=== PATIENT | male | born 1965 | race Caucasian/White ===

== ENCOUNTER → 2018-05-03 09:06 | Outpatient (CLI) | payer MEDICAID, SELFPAY ==
--- NOTE | 2018-05-03 09:10 | US_ITS ---
STUDY: ABDOMINAL ULTRASOUND - RIGHT UPPER QUADRANT REASON FOR VISIT: Male, 53 years old. Abnormal labs TECHNIQUE: Ultrasound evaluation of the right upper quadrant was performed with real-time and static juarez-scale imaging. TECHNICAL QUALITY: Adequate. Examination limited by bowel gas. COMPARISON: Gallbladder ultrasound 11/01/2013. FINDINGS: Liver: The liver measures 16 cm. There is increased echogenicity consistent with fatty infiltration. There is limited parenchymal detail. The direction of portal flow is hepatopetal. Gallbladder: The patient is status post cholecystectomy. Common Bile Duct (C.B.D.): The common bile duct measures 0.4 mm. Pancreas: There is nonvisualization of the pancreas. There is normal echogenicity of the pancreas. There is no demonstrated pancreatic mass or cyst. Right Kidney: Normal size of the right kidney. The right kidney measures 10.7 x 5 x 5 cm. Normal renal cortex. The right cortex measures 1.7 cm. There is no demonstrated renal mass or cyst. There is no right hydronephrosis. US/Abdomen Limited IMPRESSION: Hepatic steatosis, cholecystectomy, obscured pancreas. No right hydronephrosis. Electronically Signed: Radha Nice MD at 6:58 EST , Service support ,
== END ==
PROVIDERS: Family Provider Family Medicine; PCP Family Medicine; Referring Provider Family Medicine; Visit Provider Family Medicine
DX: R94.5 Abnormal results of liver function studies (principal)
CPT/HCPCS: 76705

== ENCOUNTER → 2019-02-18 08:55 | Outpatient (CLI) | payer MEDICAID, SELFPAY ==
[2019-02-18 09:54] LABS: Hemoglobin A1c 6.2 % (4.2-6.3)
[2019-02-18 10:14] LABS: ALB/GLOB Ratio 1.1 RATIO (0.9-2.4); AST(SGOT) 62 U/L (15-37); Alanine Aminotransfer ALT/SGPT 90 U/L (16-61); Albumin, Serum 4.1 g/dL (3.2-5.0); Alkaline Phosphatase 97 U/L (45-117); Anion Gap 5 (5-15); BUN 16 mg/dL (7-18); BUN/Creat Ratio 15.8 RATIO (10-20); Calcium,Total 9.3 mg/dL (8.5-10.1); Chloride 100 mmol/L (98-107); Cholesterol 223 mg/dL (200); Creatinine, Serum 1.01 mg/dL (0.70-1.30); EST Glomerular Filtration Rate 82 mL/min (>60); Est Glom Filt Rate - Afr Amer 99 mL/min (>60); Globulin 3.7 g/dL (2.2-4.2); Glucose 124 mg/dL (74-106); High Density Lipoprotein 46 mg/dL; Potassium 4.8 mmol/L (3.5-5.1); Protein, Total 7.8 g/dL (6.4-8.2); Sodium Level 135 mmol/L (136-145); Triglycerides 252 mg/dL; Very Low Density Lipoprotein 50 mg/dL (5-40)
== END ==
PROVIDERS: Family Provider Family Medicine; PCP Family Medicine; Referring Provider Family Medicine; Visit Provider Family Medicine
DX: E11.9 Type 2 diabetes mellitus without complications (principal); I10 Essential (primary) hypertension; R94.5 Abnormal results of liver function studies; R53.82 Chronic fatigue, unspecified; E78.49 Other hyperlipidemia
CPT/HCPCS: 36415; 80053; 80061; 83036

== ENCOUNTER 2019-10-04 09:57 | Emergency (ER) | payer OTHER, SELFPAY ==
[2019-10-04 09:58] VITALS: BP 145/91; PULSE 110; RESP 18; TEMP 36.3; O2SAT 96; BMI 31.4
[2019-10-04] MEDS: Diphth,Pertuss(Acell),Tet Vac 0.5 ML Vial IM (11:01)
--- NOTE | 2019-10-04 11:16 | ED.VIS.GEN ---
History of Present Illness Chief Complaint: Laceration Informant: Patient Narrative: Patient states that he cut his left knee on a [employer] filing cabinet that he was moving. Last tetanus vaccination was about 12 years ago. Past Medical History - Allergies and Home Meds Allergies/Adverse Reactions: Allergies Cggcvto-Ytv-Iwm Reductase Inhibitor Adverse Reaction (Verified 10/04/19 10:00) Other INCREASED CK Primary Care Physician: Joanne Escobedo DO [Primary Care Provider] - Smoking Status: Current some day smoker Review of Systems General: Denies: Chills, Fever, Sweats Eyes: Denies: Visual changes - bilaterally, Diplopia ENT: Denies: Rhinorrhea, Sore throat Cardiovascular: Denies: Chest pain, Palpitations Respiratory: Denies: Dyspnea, Cough, Dyspnea on exertion Gastrointestinal: Denies: Abdominal pain, Nausea, Vomiting, Diarrhea, Melena, Hematochezia Genitourinary: Denies: Dysuria, Hematuria, Frequency Musculoskeletal: Denies: Back pain, Extremity Pain Skin: Denies: Rash, Wounds Neurological: Denies: Headache, Weakness, Numbness Physical Exam Vital Signs/Narrative: Vital Signs Temp Pulse Resp BP Pulse Ox 10/04/19 09:58 97.3 F L 110 H 18 145/91 H 96 Inital Vital Signs reviewed: Yes General: Well nourished, Well developed, No Acute Distress Head: Normocephalic, Atraumatic Eyes: Perrl, EOMI ENT: Moist mucous membranes, No rhinorrhea Neck: Supple, Nontender Cardiovascular: Regular rate, Regular rhythm, No murmurs Respiratory: No distress, CTA bilaterally, Chest nontender Abdomen: Soft, Nontender, Nondistended, Normal bowel sounds Back: Nontender, Normal Inspection Extremities: No edema Skin: Normal color, No rash, Trauma - 2.5 cm linear laceration with the proximal half gaping to the anterior left knee. Bleeding controlled Neurological: Alert, Oriented x3, Cranial nerves II-XII grossly intact, Normal Strength, Normal Sensation Psychological: Normal affect, Normal Mood Diagnostic/Tx/Re-eval - Medical Decision Making Wound was locally anesthetized using 1% lidocaine washed with Shur-Clens and explored. It was sutured closed using a total of 4 simple interrupted 4-0 Ethilon sutures. Tetanus was updated with Adacel. Wounds dressed by nursing. Stitches will need to be removed in 7 to 10 days. ED Disposition - Plan for ED Patient: Disposition: Home or Assisted Living Diagnosis: Knee laceration Instructions: ED Laceration Ext Sutr Stap Tape Referrals: Joanne Escobedo DO [Primary Care Provider] - (in 7-10 days for suture removal )
[2019-10-04 12:14] VITALS: BP 118/69; PULSE 54; RESP 16; O2SAT 97
== END 2019-10-04 12:16 | disposition home or self-care (01) ==
LOC: ED 11:48
PROVIDERS: Emergency Provider Emergency Medicine; PCP Family Medicine
DX: S81.012A Laceration without foreign body, left knee, initial encounter (principal); F17.200 Nicotine dependence, unspecified, uncomplicated; Z23 Encounter for immunization; W26.8XXA Contact with other sharp object(s), not elsewhere classified, initial encounter; Y93.89 Activity, other specified; Y92.89 Other specified places as the place of occurrence of the external cause; Y99.8 Other external cause status
CPT/HCPCS: 12001; 90471; 90715; 99284

== ENCOUNTER → 2020-01-15 10:51 | Outpatient (CLI) | payer OTHER, SELFPAY ==
[2020-01-15 11:51] LABS: Hemoglobin A1c 6.2 % (3.8-5.6)
[2020-01-15 11:57] LABS: ALB/GLOB Ratio 1.1 RATIO (0.9-2.4); AST(SGOT) 50 U/L (15-37); Alanine Aminotransfer ALT/SGPT 84 U/L (16-61); Albumin, Serum 4.1 g/dL (3.2-5.0); Alkaline Phosphatase 88 U/L (45-117); Anion Gap 6 (5-15); BUN 14 mg/dL (7-18); BUN/Creat Ratio 12.7 RATIO (10-20); Calcium,Total 9.1 mg/dL (8.5-10.1); Chloride 102 mmol/L (98-107); Cholesterol 216 mg/dL (200); EST Glomerular Filtration Rate 74 mL/min (>60); Est Glom Filt Rate - Afr Amer 89 mL/min (>60); Globulin 3.9 g/dL (2.2-4.2); Glucose 118 mg/dL (74-106); High Density Lipoprotein 53 mg/dL; PSA,Total - Annual Screen 0.62 ng/mL (0.00-4.00); Potassium 4.2 mmol/L (3.5-5.1); Sodium Level 135 mmol/L (136-145); Thyroid Stim Hormone (TSH) 0.37 uIU/mL (0.358-3.74); Triglycerides 172 mg/dL; Very Low Density Lipoprotein 34 mg/dL (5-40)
== END ==
PROVIDERS: PCP Family Medicine; Referring Provider Family Medicine; Visit Provider Family Medicine
DX: E78.5 Hyperlipidemia, unspecified (principal); E11.9 Type 2 diabetes mellitus without complications; I10 Essential (primary) hypertension; R53.82 Chronic fatigue, unspecified; Z13.29 Encounter for screening for other suspected endocrine disorder; Z12.5 Encounter for screening for malignant neoplasm of prostate
CPT/HCPCS: 36415; 80053; 80061; 83036; 84153; 84443; G0103